=== PATIENT | male | born 1955 | race Caucasian/White ===

== ENCOUNTER → 2024-05-04 | Emergency (ER) | payer BC, MEDICAID ==
[~2024-05-04] VITALS: Ht 180.3 cm; Wt 100.0 kg
[2024-05-04 12:51] VITALS: O2SAT 96
[2024-05-04 13:39] LABS: BASOPHILS % 0.5 % (0.0-2.0); EOSINOPHILS % 2.4 % (0.0-5.0); HEMATOCRIT. 42.4 % (42.0-52.0); HEMOGLOBIN. 14.2 g/dL (14.0-18.0); LYMPHOCYTES % 20.3 % (20.0-50.0); MEAN CORPUSCULAR HEMOGLOBIN 33.4 pg (28.0-32.0); MEAN CORPUSCULAR HGB CONC 33.5 g/dL (31.0-37.0); MEAN CORPUSCULAR VOLUME 99.6 fL (80.0-94.0); MEAN PLATELET VOLUME 8.7 fl (7.4-10.4); MONOCYTES % 10.3 % (2.0-8.0); NEUTROPHILS % 66.5 % (40.0-76.0); PLATELET 151 x1000/uL (130-400); RED BLOOD CELL COUNT 4.26 mill/uL (4.7-6.1); WHITE BLOOD COUNT 8.2 x1000/uL (4.5-11.0)
[2024-05-04 13:50] LABS: INR 1.1; PROTHROMBIN TIME 11.8 sec (9.6-11.0)
[2024-05-04 13:52] LABS: CHLORIDE 100 mEq/L (98-107); POTASSIUM 3.5 mEq/L (3.5-5.1); SODIUM 136 mEq/L (136-145)
[2024-05-04 13:53] LABS: CALCIUM 10.3 mg/dL (8.7-10.4); CARBON DIOXIDE 25 mEq/L (21-32)
[2024-05-04 13:58] LABS: CREATININE 1.6 mg/dL (0.6-1.3); GLUCOSE 129 mg/dL (70-105); UREA NITROGEN BLOOD 32 mg/dL (9-23)
[2024-05-04 14:00] LABS: PHOSPHORUS 2.9 mg/dL (2.5-4.9)
[2024-05-04 14:27] LABS: TROPONIN I HIGH SENSITIVITY 80 ng/L (3.0-53)
[2024-05-04] MEDS: SODIUM CHLORIDE 0.9% 1,000 ML IV ONE (14:31)
[2024-05-04 16:08] LABS: TROPONIN I HIGH SENSITIVITY 64 ng/L (3.0-53)
[2024-05-04] MEDS: LIDOCAINE 5% PATCH TOP STA (19:55)
[2024-05-04 20:59] VITALS: BP 139/75; PULSE 75; RESP 18; TEMP 36.83628; O2SAT 95
== END | disposition admitted as inpatient to this hospital (09) ==
LOC: ER 12:37 → EDBEDREQ 15:18
DX: S22.42XA Multiple fractures of ribs, left side, initial encounter for closed fracture (principal); R53.1 Weakness; I10 Essential (primary) hypertension; R79.89 Other specified abnormal findings of blood chemistry; N17.9 Acute kidney failure, unspecified; W18.39XA Other fall on same level, initial encounter; Y93.89 Activity, other specified; Y92.89 Other specified places as the place of occurrence of the external cause; Y99.8 Other external cause status
CPT/HCPCS: 99285; 96360; 71045; 96361; 80048; 83880; 83735; 84100; 85025; 85610; 84484; 36415; 71100; J7030

== ENCOUNTER 2024-10-10 20:44 | Emergency (ER) | payer BC, MEDICAID ==
[~2024-10-10] VITALS: Ht 177.8 cm; Wt 91.0 kg
[~2024-10-10 20:44] MED LIST: ALLO100T MT; INDO-14 PO; P20 PO; THIA100T72 PO
[2024-10-10 20:51] VITALS: O2SAT 99
[2024-10-10] MEDS: IBUPROFEN 400MG TABLET PO ONE (22:01)
[2024-10-10] MEDS ORDERED: INDO-13 MT (22:20)
[2024-10-10] MEDS ORDERED: ALLO100T MT (22:20)
[2024-10-10 23:10] VITALS: BP 121/66; PULSE 80; RESP 16; TEMP 36.7; O2SAT 100
== END 2024-10-10 23:01 | disposition home or self-care (01) ==
LOC: ER 20:44
DX: M10.071 Idiopathic gout, right ankle and foot (principal); I10 Essential (primary) hypertension; Z79.899 Other long term (current) drug therapy; Z79.52 Long term (current) use of systemic steroids
CPT/HCPCS: 73630; 99283

== ENCOUNTER 2025-01-02 17:18 | Inpatient (IN) | payer MEDICARE, MEDICAID ==
[~2025-01-02] VITALS: Ht 175.3 cm; Wt 68.0 kg
[~2025-01-02 17:18] MED LIST changes: +INDO-13 MT
[2025-01-02 18:23] LABS: BASOPHILS % 0.3 % (0.0-2.0); EOSINOPHILS % 0.2 % (0.0-5.0); HEMATOCRIT. 41.6 % (42.0-52.0); HEMOGLOBIN. 13.7 g/dL (14.0-18.0); LYMPHOCYTES % 12.4 % (20.0-50.0); MEAN CORPUSCULAR HEMOGLOBIN 32.6 pg (28.0-32.0); MEAN CORPUSCULAR HGB CONC 32.9 g/dL (31.0-37.0); MEAN PLATELET VOLUME 7.8 fl (7.4-10.4); MONOCYTES % 9.5 % (2.0-8.0); NEUTROPHILS % 77.6 % (40.0-76.0); PLATELET 163 x1000/uL (130-400); RED CELL DISTRIBUTION WIDTH 15.5 % (11.6-14.6); WHITE BLOOD COUNT 12.3 x1000/uL (4.5-11.0)
[2025-01-02] MEDS: CEFTRIAXONE 1GM/50ML 50 ML IV ONE (18:36)
[2025-01-02] MEDS: SODIUM CHLORIDE 0.9% (SEPSIS BOLUS) IV ONE (18:39)
[2025-01-02 18:42] LABS: CHLORIDE 97 mEq/L (98-107); POTASSIUM 3.4 mEq/L (3.5-5.1); SODIUM 135 mEq/L (136-145)
[2025-01-02 18:43] LABS: CALCIUM 9.7 mg/dL (8.7-10.4); CARBON DIOXIDE 18 mEq/L (21-32)
[2025-01-02 18:48] LABS: AMMONIA 27 uMol/L (<32); CREATININE 1.1 mg/dL (0.6-1.3); GLUCOSE 98 mg/dL (70-105); UREA NITROGEN BLOOD 21 mg/dL (9-23)
[2025-01-02 18:49] LABS: ETHANOL BLOOD 153 mg/dL (<10); TROPONIN I HIGH SENSITIVITY 8 ng/L (3.0-53)
[2025-01-02 18:50] LABS: ALANINE AMINOTRANSFERASE 82 IU/L (10-49); ALBUMIN 3.9 g/dL (3.2-4.8); ASPARTATE AMINOTRANSFERASE 169 IU/L (<34); BILIRUBIN TOTAL 1.8 mg/dL (0.1-1.0); CREATINE KINASE 517 IU/L (46-171); PROTEIN TOTAL 7.4 g/dL (6.0-8.3)
[2025-01-02 18:52] LABS: INR 1.1; PROTHROMBIN TIME 11.4 sec (9.6-11.0)
[2025-01-02] MEDS: PIPERACILLIN/TAZO 3.375G/50ML 50 ML IV SCH (21:18)
[2025-01-02] MEDS ORDERED: IPRATROPIUM/ALBUTEROL 0.5-3(2.5)MG/3ML NEB NEB PRN (22:00)
[2025-01-02] MEDS ORDERED: ACETAMINOPHEN 325MG TABLET PO PRN (22:00)
[2025-01-02] MEDS ORDERED: CLONIDINE 0.1MG TABLET PO PRN (22:00)
[2025-01-02] MEDS ORDERED: ONDANSETRON HCL 4MG/2ML INJ IV PRN (22:00)
[2025-01-02] MEDS ORDERED: NALOXONE HCL 0.4MG/ML VIAL IV PRN (22:30)
[2025-01-02 22:46] LABS: CLARITY URINE CLEAR (CLEAR); COLOR URINE DARK YELLOW (YELLOW); GLUCOSE URINE NEGATIVE (NEGATIVE); KETONES URINE 1+ (NEGATIVE); LEUKOCYTE ESTERASE URINE TRACE (NEGATIVE); NITRITE URINE NEGATIVE (NEGATIVE); OCCULT BLOOD URINE 1+ (NEGATIVE); PROTEIN URINE TRACE (NEGATIVE); SPECIFIC GRAVITY URINE 1.015 (1.005-1.030)
[2025-01-02 22:55] LABS: *AMPHETAMINES SCREEN URINE NEGATIVE (NEGATIVE)
[2025-01-02 22:56] LABS: *BARBITURATES SCREEN URINE NEGATIVE (NEGATIVE); *BENZODIAZEPINES SCREEN URINE NEGATIVE (NEGATIVE); *COCAINE SCREEN URINE NEGATIVE (NEGATIVE); CANNABINOID URINE SCREEN NEGATIVE (NEGATIVE); ECSTASY MDMA SCREEN URINE NEGATIVE (NEGATIVE); METHADONE URINE SCREEN NEGATIVE (NEGATIVE); OPIATES URINE SCREEN PRESUMPTIVE POSITIVE (NEGATIVE); PHENCYCLIDINE URINE SCREEN NEGATIVE (NEGATIVE)
[2025-01-02 22:58] LABS: BACTERIA URINE 1+; SQUAMOUS EPITHELIAL CELL URINE FEW /lpf (RARE/1+); WBC URINE 0-2 /hpf (0-2)
[2025-01-03] VITALS (8 sets, daily range): BP systolic 125–143; BP diastolic 59–82; PULSE 77–107; RESP 18–20; TEMP 36.3–36.9; O2SAT 95–100
[2025-01-03] MEDS: HYDROCODONE/ACETAMINOPHEN 5/325MG TABLET PO PRN (00:08)
[2025-01-03] MEDS: VANCOMYCIN 1G PREMIX 200 ML IV SCH (00:08)
[2025-01-03] MEDS: MVI, ADULT NO.1 10 ML, FOLIC ACID 1 MG, THIAMINE HCL 100 MG in SODIUM CHLORIDE 0.9% 1,0... IV SCH ×2 (00:08→22:47)
[2025-01-03 01:38] LABS: TROPONIN I HIGH SENSITIVITY 11 ng/L (3.0-53)
[2025-01-03 06:27] LABS: BASOPHILS % 0.4 % (0.0-2.0); EOSINOPHILS % 1.5 % (0.0-5.0); HEMATOCRIT. 35.7 % (42.0-52.0); HEMOGLOBIN. 12.2 g/dL (14.0-18.0); LYMPHOCYTES % 17.1 % (20.0-50.0); MEAN CORPUSCULAR HEMOGLOBIN 33.3 pg (28.0-32.0); MEAN CORPUSCULAR HGB CONC 34.3 g/dL (31.0-37.0); MEAN CORPUSCULAR VOLUME 97.2 fL (80.0-94.0); MONOCYTES % 11.4 % (2.0-8.0); NEUTROPHILS % 69.6 % (40.0-76.0); PLATELET 130 x1000/uL (130-400); RED BLOOD CELL COUNT 3.67 mill/uL (4.7-6.1); RED CELL DISTRIBUTION WIDTH 15.3 % (11.6-14.6); WHITE BLOOD COUNT 9.1 x1000/uL (4.5-11.0)
[2025-01-03] MEDS: PIPERACILLIN/TAZO 3.375G/50ML 50 ML IV SCH (06:59)
[2025-01-03] MEDS: SODIUM CHLORIDE 0.9% 1,000 ML IV SCH (07:00)
[2025-01-03 07:56] LABS: CHLORIDE 96 mEq/L (98-107); POTASSIUM 3.6 mEq/L (3.5-5.1); SODIUM 133 mEq/L (136-145)
[2025-01-03 07:57] LABS: CARBON DIOXIDE 24 mEq/L (21-32)
[2025-01-03 07:58] LABS: CALCIUM 8.5 mg/dL (8.7-10.4)
[2025-01-03 08:00] LABS: TROPONIN I HIGH SENSITIVITY 12 ng/L (3.0-53)
[2025-01-03 08:02] LABS: CREATININE 0.9 mg/dL (0.6-1.3); GLUCOSE 119 mg/dL (70-105); UREA NITROGEN BLOOD 23 mg/dL (9-23)
[2025-01-03] MEDS: ENOXAPARIN 40MG/0.4ML SYR SUBCUT SCH (08:16)
[2025-01-03] MEDS: PANTOPRAZOLE SODIUM 40 MG/VIAL IV SCH (08:16)
[2025-01-03] MEDS: ALLOPURINOL 100 MG TABLET PO SCH (08:16)
[2025-01-03] MEDS: VANCOMYCIN 750MG/150ML (BAXTER) IV SCH (17:58)
[2025-01-04 03:36] VITALS: BP 140/79; PULSE 82; RESP 20; TEMP 36.9; O2SAT 95
[2025-01-04 07:55] LABS: CHLORIDE 97 mEq/L (98-107); POTASSIUM 3.1 mEq/L (3.5-5.1); SODIUM 133 mEq/L (136-145)
[2025-01-04 07:56] LABS: CARBON DIOXIDE 27 mEq/L (21-32)
[2025-01-04 07:57] LABS: CALCIUM 8.5 mg/dL (8.7-10.4)
[2025-01-04 08:00] VITALS: BP 139/85; PULSE 87; RESP 18; TEMP 36.4; O2SAT 100
[2025-01-04 08:01] LABS: CREATININE 0.9 mg/dL (0.6-1.3); GLUCOSE 132 mg/dL (70-105)
[2025-01-04 08:02] LABS: UREA NITROGEN BLOOD 18 mg/dL (9-23)
[2025-01-04 08:45] LABS: BASOPHILS % 0.6 % (0.0-2.0); EOSINOPHILS % 4.9 % (0.0-5.0); HEMATOCRIT. 34.1 % (42.0-52.0); HEMOGLOBIN. 11.8 g/dL (14.0-18.0); LYMPHOCYTES % 24.5 % (20.0-50.0); MEAN CORPUSCULAR HEMOGLOBIN 33.6 pg (28.0-32.0); MEAN CORPUSCULAR HGB CONC 34.8 g/dL (31.0-37.0); MEAN CORPUSCULAR VOLUME 96.7 fL (80.0-94.0); MEAN PLATELET VOLUME 8.4 fl (7.4-10.4); MONOCYTES % 12.1 % (2.0-8.0); NEUTROPHILS % 57.9 % (40.0-76.0); PLATELET 120 x1000/uL (130-400); RED BLOOD CELL COUNT 3.52 mill/uL (4.7-6.1); RED CELL DISTRIBUTION WIDTH 14.9 % (11.6-14.6); WHITE BLOOD COUNT 5.4 x1000/uL (4.5-11.0)
[2025-01-04 12:00] VITALS: BP 129/67; PULSE 92; RESP 20; TEMP 36.5; O2SAT 99
[2025-01-04] MEDS: POTASSIUM CHLORIDE 20MEQ TABLET SR PO SCH (13:43)
[2025-01-04 16:00] VITALS: BP 125/89; PULSE 87; RESP 18; TEMP 36.6; O2SAT 99
[2025-01-04 20:00] VITALS: BP 131/74; PULSE 97; RESP 18; TEMP 37.1; O2SAT 98
[2025-01-04] MEDS: ZOLPIDEM TARTRATE 5MG TABLET PO PRN (22:25)
[2025-01-05] VITALS: BP 131/64; PULSE 81; RESP 18; TEMP 36.9; O2SAT 97
[2025-01-05 04:00] VITALS: BP 127/64; PULSE 85; RESP 18; TEMP 36.8; O2SAT 97
[2025-01-05 06:20] LABS: EOSINOPHILS % 7.5 % (0.0-5.0); HEMATOCRIT. 34.3 % (42.0-52.0); HEMOGLOBIN. 11.7 g/dL (14.0-18.0); LYMPHOCYTES % 23.4 % (20.0-50.0); MEAN CORPUSCULAR HEMOGLOBIN 33.4 pg (28.0-32.0); MEAN CORPUSCULAR HGB CONC 34.2 g/dL (31.0-37.0); MEAN CORPUSCULAR VOLUME 97.6 fL (80.0-94.0); MEAN PLATELET VOLUME 8.4 fl (7.4-10.4); MONOCYTES % 11.6 % (2.0-8.0); NEUTROPHILS % 56.5 % (40.0-76.0); PLATELET 126 x1000/uL (130-400); RED BLOOD CELL COUNT 3.51 mill/uL (4.7-6.1); RED CELL DISTRIBUTION WIDTH 15.4 % (11.6-14.6); WHITE BLOOD COUNT 4.8 x1000/uL (4.5-11.0)
[2025-01-05 06:58] LABS: CARBON DIOXIDE 27 mEq/L (21-32); CHLORIDE 104 mEq/L (98-107); POTASSIUM 3.3 mEq/L (3.5-5.1); SODIUM 134 mEq/L (136-145)
[2025-01-05 06:59] LABS: CALCIUM 8.8 mg/dL (8.7-10.4)
[2025-01-05 07:03] LABS: CREATININE 0.8 mg/dL (0.6-1.3); GLUCOSE 114 mg/dL (70-105)
[2025-01-05 07:04] LABS: UREA NITROGEN BLOOD 14 mg/dL (9-23)
[2025-01-05 08:14] VITALS: BP 131/77; PULSE 81; RESP 20; TEMP 36.5; O2SAT 96
[2025-01-05] MEDS: POTASSIUM CHLORIDE 20MEQ TABLET SR PO SCH (09:26)
[2025-01-05] MEDS ORDERED: THIA100T72 PO (11:04)
[2025-01-05 12:18] VITALS: BP 112/49; PULSE 84; RESP 18; TEMP 36.6; O2SAT 93
[2025-01-05 16:17] VITALS: BP 119/68; PULSE 87; RESP 18; TEMP 37.2; O2SAT 96
[2025-01-05] MEDS ORDERED: ZOLPIDEM TARTRATE 5MG TABLET PO PRN (20:07)
[2025-01-05 20:43] VITALS: BP 125/71; PULSE 81; RESP 19; TEMP 36.4; O2SAT 97
[2025-01-05] MEDS: LORAZEPAM 2MG/ML UD SYRINGE IV PRN (21:28)
[2025-01-05] MEDS: TRAZODONE HCL 50MG TABLET PO PRN (23:29)
[2025-01-06] VITALS: BP 136/72; PULSE 82; RESP 16; TEMP 36.6; O2SAT 96
[2025-01-06 08:00] VITALS: BP 126/78; PULSE 77; RESP 18; TEMP 36.5; O2SAT 96
[2025-01-06 12:23] VITALS: BP 108/54; PULSE 77; RESP 18; TEMP 37.2; O2SAT 96
[2025-01-06 16:30] VITALS: BP 134/77; PULSE 79; RESP 20; TEMP 37.2; O2SAT 96
[2025-01-06 20:00] VITALS: BP 130/69; PULSE 78; RESP 18; TEMP 37.1; O2SAT 96
[2025-01-06 23:49] VITALS: BP 149/79; PULSE 75; RESP 20; TEMP 36.9; O2SAT 96
[2025-01-07 03:52] VITALS: BP 112/51; PULSE 78; RESP 18; TEMP 36.8; O2SAT 95
[2025-01-07 08:00] VITALS: BP 144/74; PULSE 78; RESP 20; TEMP 36.4; O2SAT 98
[2025-01-07 11:51] VITALS: BP 122/68; PULSE 85; RESP 18; TEMP 36.7; O2SAT 99
[2025-01-07 16:00] VITALS: BP 137/81; PULSE 77; RESP 20; TEMP 36.6; O2SAT 99
[2025-01-07 16:01] VITALS: RESP 18
[2025-01-07 16:03] VITALS: BP 122/68; PULSE 85; TEMP 98.1; O2SAT 99
== END 2025-01-07 17:30 | disposition home or self-care (01) | DRG 871 ==
LOC: ER 17:18 → EDBEDREQ 18:08 → ENRESERV 22:03 → 7WST 22:56
PROVIDERS: ADMIT Internal Medicine; ATTEND Internal Medicine
DX: A41.9 Sepsis, unspecified organism (principal); G92.8 Other toxic encephalopathy; R65.21 Severe sepsis with septic shock; N39.0 Urinary tract infection, site not specified; M62.82 Rhabdomyolysis; E11.9 Type 2 diabetes mellitus without complications; F10.229 Alcohol dependence with intoxication, unspecified; I10 Essential (primary) hypertension; K76.0 Fatty (change of) liver, not elsewhere classified; K74.60 Unspecified cirrhosis of liver; R53.81 Other malaise; K80.20 Calculus of gallbladder without cholecystitis without obstruction; R26.9 Unspecified abnormalities of gait and mobility; I48.91 Unspecified atrial fibrillation
CPT/HCPCS: 36415; 71045; 71250; 74176; 80048; 80076; 80202; 80305; 80320; 81003; 82140; 82550; 83605; 84484; 85025; 86850; 86900; 93005; 93306; 97162; 97530; 99291; A4606; J0696; J1650; J2060; J2470; J2543; J3370; J3411; J3490; J7030; G0480

== ENCOUNTER 2025-01-19 12:12 | Emergency (ER) | payer BC, MEDICAID ==
[~2025-01-19] VITALS: Ht 172.7 cm; Wt 105.0 kg
[~2025-01-19 12:12] MED LIST changes: +DAPA10TA PO; +DES150 PO; -INDO-13 MT; -INDO-14 PO; -P20 PO; +PANT40TA51 PO; -THIA100T72 PO; +THIA100T88 PO
[2025-01-19 12:18] VITALS: TEMP 36.7; O2SAT 98
[2025-01-19] MEDS ORDERED: DAPA10TA PO (12:28)
[2025-01-19] MEDS ORDERED: ALLO100T MT (12:28)
[2025-01-19] MEDS ORDERED: INDO-13 MT (12:28)
[2025-01-19] MEDS ORDERED: P20 MT (12:29)
[2025-01-19] MEDS ORDERED: THIA50TA12 MT (12:29)
[2025-01-19 12:37] VITALS: BP 128/71; PULSE 95; RESP 16; O2SAT 95
== END 2025-01-19 12:43 | disposition home or self-care (01) ==
LOC: ER 12:12
DX: M10.9 Gout, unspecified (principal); E11.9 Type 2 diabetes mellitus without complications; Z76.0 Encounter for issue of repeat prescription; I10 Essential (primary) hypertension; I48.91 Unspecified atrial fibrillation; Z79.84 Long term (current) use of oral hypoglycemic drugs; Z79.899 Other long term (current) drug therapy
CPT/HCPCS: 99283

== ENCOUNTER 2025-01-23 15:08 | Emergency (ER) | payer BC, MEDICAID ==
[~2025-01-23] VITALS: Ht 165.1 cm; Wt 91.0 kg
[~2025-01-23 15:08] MED LIST changes: +INDO-13 MT; +P20 MT; +THIA50TA12 MT
[2025-01-23 15:17] VITALS: BP 132/88; PULSE 86; RESP 16; TEMP 36.9; O2SAT 99
[2025-01-23] MEDS: KETOROLAC 30MG/ML VIAL IM ONE (16:08)
[2025-01-23] MEDS ORDERED: INDO50CA98 MT (17:04)
[2025-01-23] MEDS ORDERED: P20 MT (17:04)
== END 2025-01-23 17:33 | disposition home or self-care (01) ==
LOC: ER 15:08
DX: M10.071 Idiopathic gout, right ankle and foot (principal); E11.9 Type 2 diabetes mellitus without complications; I10 Essential (primary) hypertension; Z79.899 Other long term (current) drug therapy
CPT/HCPCS: 99283; 73630; 96372; J1885

== ENCOUNTER 2025-03-11 22:56 | Emergency (ER) | payer BC, MEDICAID ==
[~2025-03-11] VITALS: Ht 177.8 cm; Wt 87.0 kg
[~2025-03-11 22:56] MED LIST changes: -ALLO100T MT; +ALLO100T PO; -DAPA10TA PO; +IBUP-2028 PO; -P20 MT; -PANT40TA51 PO; +SULF1TAB48 MT; -THIA50TA12 MT; +TOPUD PO
[2025-03-11 23:09] VITALS: O2SAT 98
[2025-03-11] MEDS ORDERED: INDO-13 MT (23:49)
[2025-03-11] MEDS ORDERED: SULF1TAB48 MT (23:49)
[2025-03-11] MEDS ORDERED: IBUP-2028 PO (23:49)
[2025-03-11] MEDS ORDERED: ALLO100T PO (23:49)
[2025-03-12] MEDS: ALLOPURINOL 100 MG TABLET PO SCH (00:13)
[2025-03-12] MEDS: INDOMETHACIN 25MG CAPSULE PO ONE (00:14)
[2025-03-12] MEDS: IBUPROFEN 400MG TABLET PO ONE (00:14)
[2025-03-12 00:16] VITALS: BP 139/59; PULSE 82; RESP 20; TEMP 36.8; O2SAT 98
== END 2025-03-12 01:35 | disposition home or self-care (01) ==
LOC: ER 22:56
DX: G89.29 Other chronic pain (principal); M79.671 Pain in right foot; I10 Essential (primary) hypertension; M10.9 Gout, unspecified; Z79.899 Other long term (current) drug therapy
CPT/HCPCS: 99284